=== PATIENT | male | born 1985 | race Caucasian/White ===

== ENCOUNTER 2024-05-08 10:19 | Emergency (ER) | payer OTHER, SELFPAY ==
[2024-05-08 10:19] VITALS: BMI 30.3
[2024-05-08 10:20] VITALS: BP 132/85
[2024-05-08 12:00] VITALS: BP 128/78
[2024-05-08] MEDS: TORADOL 15 MG IM (12:11)
[2024-05-08] MEDS: TYLENOL 1000 MG PO (12:11)
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
== END 2024-05-08 13:00 | disposition home or self-care (01) ==
LOC: EMR 10:19
PROVIDERS: EMERGENCY PHYSICIAN Student in an Organized Health Care Education/Training Program; FAMILY PHYSICIAN Family Medicine
DX: M79.652 Pain in left thigh (principal)
CPT/HCPCS: 99282; 96372

== ENCOUNTER → 2024-06-08 11:18 | Outpatient (REF) | payer OTHER, SELFPAY | LOC: HWRAD 11:18 | PROVIDERS: ATTENDING PHYSICIAN Physician Assistant Medical | DX: M79.89 Other specified soft tissue disorders (principal); R22.41 Localized swelling, mass and lump, right lower limb | CPT/HCPCS: 73552; 73590 ==

== ENCOUNTER → 2024-07-14 07:24 | Outpatient (REF) | payer OTHER, SELFPAY | LOC: MRI 07:24 | PROVIDERS: ATTENDING PHYSICIAN Physician Assistant Medical; FAMILY PHYSICIAN Family Medicine | DX: M54.50 Low back pain, unspecified (principal); M54.16 Radiculopathy, lumbar region; R22.41 Localized swelling, mass and lump, right lower limb | CPT/HCPCS: 72148; 73718; A9575 ==